=== PATIENT | male | born 1965 | race African-American/Black ===

== ENCOUNTER 2017-02-15 21:38 | Observation (INO) | payer MEDICARE, OTHER ==
--- NOTE | 2017-02-15 22:44 | ER Document Report ---
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 IN LAST 30 DAYS: No <JAS VILLASENOR - Last Filed: 02/16/17 04:44> <BEL CHAPMAN - Last Filed: 02/16/17 05:27> - General Chief Complaint: Nausea/Vomiting/Diarrhea Stated Complaint: VOMITING,FEVER Time Seen by Provider: 02/15/17 22:29 Notes: Patient is a 51 year old male with a history of HTN presents to the emergency department with family complaining of multiple symptoms including nausea, vomiting, and chest pain onset today. Patient states that he had similar symptoms in April. Patient states he had some turkey this morning and proceeded to vomit 2x and once upon arrival and states he has not eaten since. Patient states his abdomen is swollen and he feels as if there is air inside it. Patient states that he feels his chest pain is correlated with him vomiting so much. Patient also states that it hurts to breathe and short of breath. (JAS VILLASENOR) - Related Data Allergies/Adverse Reactions: No Known Allergies Allergy (Unverified 02/15/17 21:58) Past Medical History - General Information source: Patient - Social History Smoking Status: Current Every Day Smoker Smoking Education Provided: No Frequency of alcohol use: Occasional Drug Abuse: None Family History: Reviewed & Not Pertinent - Past Medical History Cardiac Medical History: Reports: Hx Hypertension <JAS VILLASENOR - Last Filed: 02/16/17 04:44> Review of Systems - Review of Systems Constitutional: No symptoms reported EENT: No symptoms reported Cardiovascular: See HPI, Chest pain Respiratory: See HPI, Hurts to breathe, Short of breath Gastrointestinal: See HPI, Abdomen distended, Nausea, Vomiting Genitourinary: No symptoms reported Male Genitourinary: No symptoms reported Musculoskeletal: No symptoms reported Skin: No symptoms reported Hematologic/Lymphatic: No symptoms reported Neurological/Psychological: No symptoms reported -: Yes All other systems reviewed and negative <JAS VILLASENOR - Last Filed: 02/16/17 04:44> Physical Exam <JAS VILLASENOR - Last Filed: 02/16/17 04:44> <BEL CHAPMAN - Last Filed: 02/16/17 05:27> - Vital signs Vitals: Temp Pulse Resp BP Pulse Ox 99.7 F 69 20 157/95 H 93 02/15/17 21:58 02/15/17 21:58 02/15/17 21:58 02/15/17 21:58 02/15/17 21:58 - Notes Notes: GENERAL: Alert, interacts well. No acute distress. Patient is deaf. HEAD: Normocephalic, atraumatic. EYES: Pupils equal, round, and reactive to light. Extraocular movements intact. ENT: Oral mucosa moist, tongue midline. NECK: Full range of motion. Supple. Trachea midline. LUNGS: Clear to auscultation bilaterally, no wheezes, rales, or rhonchi. No respiratory distress. HEART: 3/6 systolic murmur. no gallops or rubs. ABDOMEN: Soft, non-tender. Non-distended. Bowel sounds present in all 4 quadrants. EXTREMITIES: Moves all 4 extremities spontaneously. No edema, radial and dorsalis pedis pulses 2/4 bilaterally. No cyanosis. NEUROLOGICAL: Alert and oriented x3. PSYCH: Normal affect, normal mood. SKIN: Warm, dry, normal turgor. No rashes or lesions noted. (JAS VILLASENOR) Course - Laboratory Result Diagrams: 02/15/17 22:50 02/15/17 22:50 <JAS VILLASENOR - Last Filed: 02/16/17 04:44> - Laboratory Result Diagrams: 02/15/17 22:50 02/15/17 22:50 <BEL CHAPMAN - Last Filed: 02/16/17 05:27> - Re-evaluation Re-evalutation: Patient re-checked. Patient is hypoxic and on oxygen. CTA will be done to look for a pulmonary embolism. Patient states pain and breathing is better. Patient is drinking baljit feliciano without difficulties. 02/16/17 00:41 02/16/17 00:43 (JAS VILLASENOR) 02/16/17 05:25 CBC shows slight leukocytosis 11.1, coags normal, CMP shows slightly elevated BUN, negative cardiac enzymes, elevated lipase at 743.6, pain from the stomach is controlled after a single dose of pain medication and vomiting is controlled after single dose of Zofran, able to tolerate baljit feliciano without difficulty. Patient did become hypoxic while at rest to 88% on room air. Chest x-ray reveals possible pulmonary edema however proBNP is 71, he has no history of heart failure and lung exam is not consistent with pulmonary edema so a CT angiogram of the chest was ordered to look for pulmonary embolism, this showed possible pulmonary edema versus atypical pneumonia versus chronic interstitial lung disease. At present patient is still hypoxic on room air. Discussed with patient the need for admission given hypoxia, patient agrees, discussed this case with Dr. Odom the hospitalist who agrees to admit the patient to the hospital. (BEL CHAPMAN) - Vital Signs Vital signs: Temp Pulse Resp BP Pulse Ox 99.7 F 69 17 120/94 H 93 02/15/17 21:58 02/15/17 21:58 02/16/17 04:00 02/16/17 03:59 02/16/17 04:00 - Laboratory Laboratory results interpreted by me: 02/15/17 02/15/17 02/15/17 22:50 22:50 22:50 WBC 11.1 H RDW 14.8 H Seg Neuts % (Manual) 95 H Band Neutrophils % 1 L Lymphocytes % (Manual) 3 L Monocytes % (Manual) 1 L Abs Neuts (Manual) 10.7 H Abs Lymphs (Manual) 0.3 L Sodium 145.1 H BUN 24 H Glucose 115 H Direct Bilirubin 0.5 H Creatine Kinase 212 H Lipase 743.6 H - EKG Interpretation by Me Additional EKG results interpreted by me: 02/16/17 05:25 EKG does show sinus rhythm at a rate of 80, left axis deviation, normal intervals, LVH, T-wave inversions noted in V4 through V6 as well as 1 and aVL, no old EKGs available for comparison per my interpretation. (BEL CHAPMAN) Discharge <JAS VILLASENOR - Last Filed: 02/16/17 04:44> - Discharge Admitting Provider: Maura odom Unit Admitted: Telemetry <BEL CHAPMAN - Last Filed: 02/16/17 05:27> - Discharge Clinical Impression: Hypoxia Pancreatitis Qualifiers: Chronicity: acute Pancreatitis type: unspecified pancreatitis type Acute pancreatitis complication: unspecified Qualified Code(s): K85.90 - Acute pancreatitis without necrosis or infection, unspecified Condition: Fair Disposition: ADMITTED INPATIENT Scribe Attestation: 02/16/17 05:26 I personally performed the services described in the documentation, reviewed and edited the documentation which was dictated to the scribe in my presence, and it accurately records my words and actions. (BEL CHAPMAN) Scribe Documentation - Scribe Written by Scribe:: Trinity Dooley, 02/15/2017 23:35 acting as scribe for :: Bel <JAS VILLASENOR - Last Filed: 02/16/17 04:44>
[2017-02-15 23:02] LABS: HEMOGLOBIN 15.9 g/dL (13.5-17.0); HGB HCT DIFFERENCE 1.7; MEAN CORPUSCULAR HEMOGLOBIN 31.9 pg (27.0-33.4); MEAN CORPUSCULAR HGB CONC 34.5 g/dL (32.0-36.0); MEAN CORPUSCULAR VOLUME 92 fl (80-97); RED BLOOD COUNT 4.98 10^6/uL (4.35-5.55); RED CELL DISTRIBUTION WIDTH 14.8 % (11.5-14.0); WHITE BLOOD COUNT 11.1 10^3/uL (4.0-10.5)
--- NOTE | 2017-02-15 23:02 | RADIOLOGY REPORT (SQ) ---
EXAM DESCRIPTION: CHEST PA/LAT COMPLETED DATE/TIME: 02/15/2017 10:37 pm REASON FOR STUDY: chest pain COMPARISON: None. EXAM PARAMETERS: NUMBER OF VIEWS: two views TECHNIQUE: Digital Frontal and Lateral radiographic views of the chest acquired. RADIATION DOSE: NA LIMITATIONS: none FINDINGS: LUNGS AND PLEURA: Mild interstitial markings. Moderate lung volume. MEDIASTINUM AND HILAR STRUCTURES: No masses or contour abnormalities. HEART AND VASCULAR STRUCTURES: Heart normal size. No evidence for failure. BONES: No acute findings. HARDWARE: None in the chest. OTHER: No other significant finding. IMPRESSION: Mild interstitial markings which may indicate mild pulmonary edema, atypical pneumonitis , and/or chronic interstitial lung disease. TECHNICAL DOCUMENTATION: JOB ID: [id number] [employer]- All Rights Reserved
[2017-02-15 23:04] LABS: PROTHROMBIN TIME 13.1 SEC (11.4-15.4)
[2017-02-15 23:18] LABS: ALANINE AMINOTRANSFERASE 43 U/L (21-72); ALBUMIN 4.4 g/dL (3.5-5.0); ALKALINE PHOSPHATASE 94 U/L (38-126); ANION GAP 15 (5-19); ASPARTATE AMINO TRANSFERASE 22 U/L (17-59); BAND NEUTROPHILS % (MANUAL) 1 % (3-5); BASOPHILS % (MANUAL) 0 % (0-2); BILIRUBIN,DIRECT 0.5 mg/dL (0.0-0.4); BILIRUBIN,TOTAL 0.9 mg/dL (0.2-1.3); BLOOD UREA NITROGEN 24 mg/dL (7-20); CALCIUM 9.2 mg/dL (8.4-10.2); CARBON DIOXIDE 24 mmol/L (22-30); CHLORIDE 106 mmol/L (98-107); CREATINE KINASE 212 U/L (55-170); CREATININE RESULT 1.06 mg/dL (0.52-1.25); EOSINOPHILS % (MANUAL) 0 % (0-6); GLUCOSE 115 mg/dL (75-110); LYMPHOCYTES % (MANUAL) 3 % (13-45); POTASSIUM 3.8 mmol/L (3.6-5.0); SODIUM 145.1 mmol/L (137-145); TOTAL CELLS COUNTED 100; TOTAL PROTEIN 7.5 g/dL (6.3-8.2)
[2017-02-15 23:19] LABS: ANISOCYTOSIS SLIGHT; POLYCHROMASIA SLIGHT
[2017-02-15 23:30] LABS: CREATINE KINASE MB 1.98 ng/mL (<4.55)
[2017-02-15 23:32] LABS: TROPONIN I < 0.012 ng/mL
[2017-02-16] MEDS ORDERED: HYDROMORPHONE HCL INJ/PF 2 MG/ML AMPULE IV ONE (00:02)
[2017-02-16] MEDS ORDERED: ONDANSETRON HCL INJ/PF 4 MG/2 ML SDV IV ONE (00:02)
[2017-02-16] MEDS ORDERED: FUROSEMIDE INJ/PF 40 MG/4 ML SDV IV ONE (00:32)
--- NOTE | 2017-02-16 03:19 | RADIOLOGY REPORT (SQ) ---
EXAM DESCRIPTION: CTA CHEST COMPLETED DATE/TIME: 02/16/2017 3:07 am REASON FOR STUDY: hypoxia, chest pain COMPARISON: CR, 02/15/2017 TECHNIQUE: CT scan of the chest performed using helical scanning technique with dynamic intravenous contrast injection. Images reviewed with lung, soft tissue and bone windows. Reconstructed coronal and sagittal MPR images reviewed. Additional 3 dimensional post-processing performed to develop Maximal Intensity Projection images ([place] P). All images stored on PACS. All CT scanners at this facility use dose modulation, iterative reconstruction, and/or weight based d osing when appropriate to reduce radiation dose to as low as reasonably achievable (ALARA). [facility]: Dose Right [facility]: CareDose [facility]: Dose Right [facility]: Teradose 4D [facility]: [employer] CONTRAST TYPE AND DOSE: contrast/concentration: Isovue 370.00 mg/ml; Total Contrast Delivered: 100.0 ml; Total Saline Delivered: 60.0 ml Contrast bolus optimized for the pulmonary arteries. Not diagnostic for the aorta. RENAL FUNCTION: Creatinine 1.1 RADIATION DOSE: CT Rad equipment meets quality standard of care and radiation dose reduction techniq ues were employed. CTDIvol: 25.2 mGy. DLP: 752 mGy-cm. . LIMITATIONS: None. FINDINGS: LUNGS AND PLEURA: Mild interstitial markings. Scattered ground-glass airspace opacity of bilateral lower lung tate. Moderate lung volume. AORTA AND GREAT VESSELS: No aneurysm. Contrast bolus not optimized for the aorta. HEART: No pericardial effusion. No significant coronary artery calcifications. PULMONARY ARTERIES: No emboli visualized in the main pulmonary arteries or the segmental branches. HILAR AND MEDIASTINAL STRUCTURES: No identified masses or abnormal nodes. HARDWARE: None in the chest. UPPER ABDOMEN: No significant findings. Limited exam. THYROID AND OTHER SOFT TISSUES: No masses. No adenopathy. BONES: No acute or significant finding. 3D MIPS: Confirm above findings. OTHER: No other significant finding. IMPRESSION: Mild prominence of the interstitium and scattered ground-glass airspace opacity ; differ ential diagnosis includes mild pulmonary edema, atypical pneumonitis, and/or chronic interstitial power g disease. COMMENT: Quality ID # [id number]: Final reports with documentation of one or more dose reduction techniques (e.g., Automated exposure control, adjustment of the mA and/or kV according to patient size, use of iterative reconstruction technique) TECHNICAL DOCUMENTATION: JOB ID: [id number] [employer]- All Rights Reserved
[2017-02-16] MEDS ORDERED: PANTOPRAZOLE SODIUM 40 MG VIAL IV ONE (05:13)
[2017-02-16] MEDS ORDERED: ONDANSETRON HCL INJ/PF 4 MG/2 ML SDV IV PRN (05:17)
[2017-02-16] MEDS ORDERED: ACETAMINOPHEN 325 MG TABLET PO PRN (05:17)
[2017-02-16] MEDS ORDERED: ASPIRIN 325 MG TABLET PO ONE (05:26)
[2017-02-16] MEDS: HEPARIN SOD (PORCINE) 5,000 UNIT/ML 1 ML SYRINGE SUBCUT SCH ×3 (05:47→22:36)
[2017-02-16 06:31] LABS: CREATINE KINASE MB 2.49 ng/mL (<4.55)
[2017-02-16 06:47] LABS: TROPONIN I < 0.012 ng/mL
[2017-02-16] MEDS ORDERED: HYDRALAZINE HCL INJ/PF 20 MG/1 ML SDV IV PRN (07:33)
[2017-02-16] MEDS ORDERED: KETOROLAC TROMETHAMINE INJ/PF 30 MG/1 ML SDV IV PRN (07:33)
[2017-02-16] MEDS ORDERED: CALCIUM CARBONATE 500 MG TAB.CHEW PO PRN (07:33)
--- NOTE | 2017-02-16 07:33 | PDOC H&P ---
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 Patient presents after several days of worsening abdominal pain and distention associated with nausea and vomiting. Patient denies chest pain he has had some brief shortness of breath. Patient' s new medications include nifedipine. In the emergency room he was found to have acute pancreatitis and shortness of breath with pneumonitis. He is referred to the hospitalist for admission. Past Medical History Cardiac Medical History: Reports: Hypertension Social History Information Source: Patient Smoking Status: Current Every Day Smoker Frequency of Alcohol Use: None Hx Recreational Drug Use: No - Advance Directive Resuscitation Status: Full Code Family History Family History: Hypertension Parental Family History Reviewed: Yes Children Family History Reviewed: Yes Sibling(s) Family History Reviewed.: Yes Medication/Allergy Allergies/Adverse Reactions: No Known Allergies Allergy (Unverified 02/15/17 21:58) Review of Systems Gastrointestinal: PRESENT: bloating, constipation, diarrhea, nausea Genitourinary: ABSENT: dysuria, hematuria Musculoskeletal: ABSENT: joint swelling Integumentary: ABSENT: rash, wounds Neurological: ABSENT: abnormal gait, abnormal speech, confusion, dizziness, focal weakness, syncope Psychiatric: ABSENT: anxiety, depression, homidical ideation, suicidal ideation Endocrine: ABSENT: cold intolerance, heat intolerance, polydipsia, polyuria Hematologic/Lymphatic: ABSENT: easy bleeding, easy bruising Physical Exam Vital Signs: Temp Pulse Resp BP Pulse Ox 99.7 F 69 16 120/71 93 02/15/17 21:58 02/15/17 21:58 02/16/17 06:00 02/16/17 05:01 02/16/17 06:00 General appearance: PRESENT: no acute distress, well-developed, well-nourished Head exam: PRESENT: atraumatic, normocephalic Eye exam: PRESENT: conjunctiva pink, EOMI, PERRLA. ABSENT: scleral icterus Ear exam: PRESENT: normal external ear exam Mouth exam: PRESENT: moist, tongue midline Neck exam: ABSENT: carotid bruit, JVD, lymphadenopathy, thyromegaly Respiratory exam: PRESENT: clear to auscultation jacoby. ABSENT: rales, rhonchi, wheezes Cardiovascular exam: PRESENT: RRR. ABSENT: diastolic murmur, rubs, systolic murmur Pulses: PRESENT: normal dorsalis pedis pul Vascular exam: PRESENT: normal capillary refill GI/Abdominal exam: PRESENT: distended, hypoactive bowel sounds, normal bowel sounds, soft, tenderness. ABSENT: firm, guarding, mass, organolmegaly, rebound Rectal exam: PRESENT: deferred Extremities exam: PRESENT: full ROM. ABSENT: calf tenderness, clubbing, pedal edema Neurological exam: PRESENT: alert, awake, oriented to person, oriented to place , oriented to time, oriented to situation, CN II-XII grossly intact. ABSENT: motor sensory deficit Psychiatric exam: PRESENT: appropriate affect, normal mood. ABSENT: homicidal ideation, suicidal ideation Skin exam: PRESENT: dry, intact, warm. ABSENT: cyanosis, rash Results Laboratory Results: 02/16/17 02/16/17 05:50 05:50 Creatine Kinase 233 H CK-MB (CK-2) 2.49 Troponin I < 0.012 Impressions: Chest X-Ray 02/15/17 00:00 IMPRESSION: Mild interstitial markings which may indicate mild pulmonary edema , atypical pneumonitis, and/or chronic interstitial lung disease. Chest/Abdomen CTA 02/16/17 00:32 IMPRESSION: Mild prominence of the interstitium and scattered ground-glass airspace opacity ; differential diagnosis includes mild pulmonary edema, atypical pneumonitis, and/or chronic interstitial lung disease. Assessment & Plan - Diagnosis (1) Ileus Is this a current diagnosis for this admission?: Yes Plan: Recent onset without significant leukocytosis most likely secondary to nifedipine. Discontinue nifedipine substitute PINA inhibitor or hydralazine. (2) Pneumonitis Is this a current diagnosis for this admission?: Yes Plan: Secondary to ileus with vomiting, symptomatic management (3) Irritable bowel syndrome Is this a current diagnosis for this admission?: Yes Plan: Chronic by history intermittent constipation and diarrhea trial Bentyl (4) Pancreatitis Qualifiers: Chronicity: acute Pancreatitis type: unspecified pancreatitis type Acute pancreatitis complication: unspecified Qualified Code(s): K85.90 - Acute pancreatitis without necrosis or infection, unspecified Is this a current diagnosis for this admission?: Yes Plan: Mild by history and chemical findings likely secondary to ileus with vomiting only, bowel rest and symptomatic management. - Time Time Spent: 30 to 50 Minutes
[2017-02-16] MEDS: IPRATROPIUM/ALBUTEROL 0.5-2.5 MG/3 ML AMPUL NEB SCH ×2 (08:59→16:25)
[2017-02-16] MEDS ORDERED: PSYLLIUM SEED-SF 5.85 GM PACKET PO SCH ×2 (10:00)
--- NOTE | 2017-02-16 10:24 | PDOC PROGRESS REPORT ---
Subjective Progress Note for:: 02/16/17 Subjective:: Denies any further abdominal pain. Physical Exam Vital Signs: Temp Pulse Resp BP Pulse Ox 98.7 F 79 18 128/77 H 90 L 02/16/17 07:50 02/16/17 09:35 02/16/17 07:50 02/16/17 08:00 02/16/17 07:50 Intake & Output 02/15/17 02/16/17 02/17/17 06:59 06:59 06:59 Weight 95.3 kg General appearance: PRESENT: no acute distress Eye exam: PRESENT: conjunctiva pink. ABSENT: scleral icterus Mouth exam: PRESENT: moist, tongue midline Neck exam: ABSENT: JVD Respiratory exam: PRESENT: clear to auscultation jacoby. ABSENT: rales, rhonchi, wheezes Cardiovascular exam: PRESENT: RRR. ABSENT: diastolic murmur, rubs, systolic murmur GI/Abdominal exam: PRESENT: hypoactive bowel sounds, soft. ABSENT: distended, guarding, mass, organolmegaly, rebound, tenderness Extremities exam: ABSENT: calf tenderness, clubbing, pedal edema Neurological exam: PRESENT: alert, awake, oriented to person, oriented to place , oriented to time, oriented to situation. ABSENT: CN II-XII grossly intact - Patient is deaf, motor sensory deficit Psychiatric exam: PRESENT: appropriate affect Skin exam: PRESENT: dry, intact, warm. ABSENT: cyanosis, rash Results Laboratory Results: 02/16/17 02/16/17 05:50 05:50 Creatine Kinase 233 H CK-MB (CK-2) 2.49 Troponin I < 0.012 Impressions: Chest X-Ray 02/15/17 00:00 IMPRESSION: Mild interstitial markings which may indicate mild pulmonary edema , atypical pneumonitis, and/or chronic interstitial lung disease. Chest/Abdomen CTA 02/16/17 00:32 IMPRESSION: Mild prominence of the interstitium and scattered ground-glass airspace opacity ; differential diagnosis includes mild pulmonary edema, atypical pneumonitis, and/or chronic interstitial lung disease. Assessment & Plan - Diagnosis (1) Hypoxia Is this a current diagnosis for this admission?: Yes Plan: Most likely secondary to aspiration. This is improving. (2) Pneumonitis Is this a current diagnosis for this admission?: Yes Plan: The patient may have had aspiration. He is clinically improving. No evidence for active infection. (3) Ileus Is this a current diagnosis for this admission?: Yes Plan: Improving. The patient was just started on nifedipine which could be the cause for his ileus. (4) Pancreatitis Qualifiers: Chronicity: acute Pancreatitis type: unspecified pancreatitis type Acute pancreatitis complication: unspecified Qualified Code(s): K85.90 - Acute pancreatitis without necrosis or infection, unspecified Is this a current diagnosis for this admission?: Yes Plan: The patient's abdominal pain has improved. Will continue n.p.o. today and start feeding tomorrow and if tolerated send home tomorrow. (5) Irritable bowel syndrome Is this a current diagnosis for this admission?: Yes (6) Hypertension Is this a current diagnosis for this admission?: Yes Plan: The patient's nifedipine has been stopped because the possibility of it contributing to the ileus. - Time Time Spent with patient: 25-34 minutes
[2017-02-16] MEDS: NORMAL SALINE 1000 ML 1,000 ML IV PRN (11:15)
[2017-02-16 12:41] LABS: CREATINE KINASE MB 2.64 ng/mL (<4.55)
[2017-02-16 12:44] LABS: TROPONIN I < 0.012 ng/mL
--- NOTE | 2017-02-16 14:41 | EKG REPORT ---
SEVERITY:- ABNORMAL ECG - SINUS RHYTHM LEFT ATRIAL ABNORMALITY PROBABLE LVH WITH SECONDARY REPOL ABNRM ABNORMAL T, PROBABLE ISCHEMIA, ANT-LAT LEADS : Confirmed by: Donna Maldonado MD 16-Feb-2017 14:41:43
[2017-02-16] MEDS: DICYCLOMINE HCL 20 MG TABLET PO SCH ×3 (15:35→22:36)
[2017-02-16] MEDS: DOCUSATE SODIUM 100 MG CAPSULE PO SCH ×2 (15:36→18:51)
[2017-02-16 18:18] LABS: CREATINE KINASE MB 2.94 ng/mL (<4.55)
[2017-02-16 18:23] LABS: TROPONIN I < 0.012 ng/mL
[2017-02-17] MEDS: NORMAL SALINE 1000 ML 1,000 ML IV PRN (00:11)
[2017-02-17] MEDS: IPRATROPIUM/ALBUTEROL 0.5-2.5 MG/3 ML AMPUL NEB SCH ×2 (00:32→08:40)
[2017-02-17 05:25] LABS: ABSOLUTE LYMPHOCYTES (AUTO) 1.6 10^3/uL (0.5-4.7); ABSOLUTE MONOCYTES (AUTO) 0.6 10^3/uL (0.1-1.4); ABSOLUTE NEUT (AUTO) 3.5 10^3/uL (1.7-8.2); BASOPHILS % (AUTO) 0.8 % (0-2); EOSINOPHILS % (AUTO) 0.8 % (0-6); HGB HCT DIFFERENCE 1.6; LYMPHOCYTES % (AUTO) 27.3 % (13-45); MEAN CORPUSCULAR HEMOGLOBIN 32.1 pg (27.0-33.4); MEAN CORPUSCULAR HGB CONC 34.6 g/dL (32.0-36.0); MEAN CORPUSCULAR VOLUME 93 fl (80-97); RED BLOOD COUNT 4.09 10^6/uL (4.35-5.55); RED CELL DISTRIBUTION WIDTH 14.9 % (11.5-14.0); SEGMENTED NEUTROPHILS % (AUTO) 61.1 % (42-78); WHITE BLOOD COUNT 5.8 10^3/uL (4.0-10.5)
[2017-02-17 05:27] LABS: HEMOGLOBIN 13.2 g/dL (13.5-17.0)
[2017-02-17 05:45] LABS: ANION GAP 11 (5-19); BLOOD UREA NITROGEN 20 mg/dL (7-20); CARBON DIOXIDE 23 mmol/L (22-30); CHLORIDE 111 mmol/L (98-107); CREATININE RESULT 1.05 mg/dL (0.52-1.25); GLUCOSE 74 mg/dL (75-110); POTASSIUM 3.6 mmol/L (3.6-5.0); SODIUM 144.6 mmol/L (137-145)
[2017-02-17] MEDS: HEPARIN SOD (PORCINE) 5,000 UNIT/ML 1 ML SYRINGE SUBCUT SCH (05:55)
[2017-02-17 09:19] VITALS: BP 128/77
--- NOTE | 2017-02-17 10:54 | PDOC DISCHARGE SUMMARY ---
General - Admit/Disc Date/PCP Admission Date/Primary Care Provider: 02/16/17 05:30 NO LOCALMD Discharge Date: 02/17/17 - Discharge Diagnosis (1) Hypoxia Is this a current diagnosis for this admission?: Yes Summary: Secondary to aspiration pneumonitis. This is resolving. (2) Pneumonitis Is this a current diagnosis for this admission?: Yes Summary: Improving. No antibiotics were used. (3) Ileus Is this a current diagnosis for this admission?: Yes Summary: Possibly secondary to his nifedipine was recently started. He has been changed over to Norvasc. (4) Pancreatitis Is this a current diagnosis for this admission?: Yes Summary: Resolved (5) Irritable bowel syndrome Is this a current diagnosis for this admission?: Yes (6) Hypertension Is this a current diagnosis for this admission?: Yes Summary: His nifedipine was stopped and he was switched over to Norvasc. - Additional Information Resuscitation Status: Full Code Discharge Diet: Regular Discharge Activity: Activity As Tolerated Home Medications: Atorvastatin Calcium [Lipitor 20 mg Tablet] 20 mg PO DAILY 02/16/17 Hydrochlorothiazide [Hydrodiuril 25 mg Tablet] 25 mg PO Q12 02/16/17 Lisinopril [Prinivil 40 mg Tablet] 40 mg PO DAILY 02/16/17 Omeprazole 20 mg PO Q6AM 02/16/17 Amlodipine Besylate [Norvasc 2.5 mg Tablet] 2.5 mg PO DAILY #30 tablet 02/17/17 History of Present Illness History of Present Illness: JON SHAH is a 51 year old male with a history of hypertension and hyperlipidemia as well as deafness who presents with several day history of abdominal pain and distention with nausea and vomiting. The patient had recently been started on nifedipine. Patient admission was found to have some pancreatitis and shortness of breath consistent with pneumonitis Hospital Course Hospital Course: 51-year-old male with history of hypertension who presented with an ileus as well as pancreatitis and probable aspiration pneumonitis. He was admitted and made n.p.o. Given IV fluids. His ileus resolved spontaneously. The patient's pink otitis also resolved. He did have some possible aspiration and this has improved. He was initially hypoxic but that has resolved. Because the ileus occurred after starting nifedipine the possibility of this being the causative agent was considered. His nifedipine was stopped and he was changed over to Norvasc 2.5 mg daily. Physical Exam Vital Signs: Temp Pulse Resp BP Pulse Ox 98.7 F 65 16 128/77 H 97 02/17/17 09:15 02/17/17 09:15 02/17/17 09:15 02/17/17 09:15 02/17/17 09:15 Intake & Output 02/16/17 02/17/17 02/18/17 06:59 06:59 06:59 Intake Total 3536 Balance 3536 Weight 96.5 kg General appearance: PRESENT: no acute distress Eye exam: PRESENT: conjunctiva pink. ABSENT: scleral icterus Mouth exam: PRESENT: moist, tongue midline Neck exam: ABSENT: JVD Respiratory exam: PRESENT: clear to auscultation jacoby. ABSENT: rales, rhonchi, wheezes Cardiovascular exam: PRESENT: RRR. ABSENT: diastolic murmur, rubs, systolic murmur GI/Abdominal exam: PRESENT: normal bowel sounds, soft. ABSENT: distended, guarding, mass, organolmegaly, rebound, tenderness Extremities exam: ABSENT: calf tenderness, clubbing, pedal edema Neurological exam: PRESENT: alert, awake, oriented to person, oriented to place , oriented to time, oriented to situation. ABSENT: CN II-XII grossly intact - He is deaf, motor sensory deficit Psychiatric exam: PRESENT: appropriate affect Skin exam: PRESENT: dry, intact, warm. ABSENT: cyanosis, rash Results Laboratory Results: 02/17/17 04:39 02/17/17 04:39 02/17/17 02/17/17 04:39 04:39 WBC 5.8 RBC 4.09 L Hgb 13.2 L D Hct 38.0 MCV 93 MCH 32.1 MCHC 34.6 RDW 14.9 H Plt Count 195 Seg Neutrophils % 61.1 Lymphocytes % 27.3 Monocytes % 10.0 Eosinophils % 0.8 Basophils % 0.8 Absolute Neutrophils 3.5 Absolute Lymphocytes 1.6 Absolute Monocytes 0.6 Absolute Eosinophils 0.0 Absolute Basophils 0.0 Sodium 144.6 Potassium 3.6 Chloride 111 H Carbon Dioxide 23 Anion Gap 11 BUN 20 Creatinine 1.05 Est GFR ( Amer) > 60 Est GFR (Non-Af Amer) > 60 Glucose 74 L Calcium 8.0 L 02/16/17 02/16/17 02/16/17 05:50 05:50 11:42 Creatine Kinase 233 H 230 H CK-MB (CK-2) 2.49 Troponin I < 0.012 02/16/17 02/16/17 02/16/17 11:42 17:30 17:30 Creatine Kinase 273 H CK-MB (CK-2) 2.64 2.94 Troponin I < 0.012 < 0.012 Impressions: Chest X-Ray 02/15/17 00:00 IMPRESSION: Mild interstitial markings which may indicate mild pulmonary edema , atypical pneumonitis, and/or chronic interstitial lung disease. Chest/Abdomen CTA 02/16/17 00:32 IMPRESSION: Mild prominence of the interstitium and scattered ground-glass airspace opacity ; differential diagnosis includes mild pulmonary edema, atypical pneumonitis, and/or chronic interstitial lung disease. Qualifiers PATEINT BEING DISCHARGED WITH ANY OF THE FOLLOWING DIAGNOSIS?: No Plan Discharge Plan: Patient is discharged to home. Follow-up with primary care in 2 weeks. Time Spent: Less than 30 Minutes
== END 2017-02-17 10:15 | disposition home or self-care (01) ==
LOC: ER 21:38 → EH 02-16 05:30 → INTOOBSV 02-16 05:30 → 3S 02-16 07:47
PROVIDERS: ADMIT Internal Medicine; ATTEND Internal Medicine
PROC: 3E0F7GC Introduction of Other Therapeutic Substance into Respiratory Tract, Via Natural or Artificial Opening (ICD-10-PCS; principal; 2017-02-15)
DX: R09.02 Hypoxemia (principal); J69.0 Pneumonitis due to inhalation of food and vomit; K56.7 Ileus, unspecified; K85.90 Acute pancreatitis without necrosis or infection, unspecified; K58.2 Mixed irritable bowel syndrome; I10 Essential (primary) hypertension; E78.5 Hyperlipidemia, unspecified; H91.90 Unspecified hearing loss, unspecified ear; H66.90 Otitis media, unspecified, unspecified ear; F17.200 Nicotine dependence, unspecified, uncomplicated; Z79.899 Other long term (current) drug therapy; Z82.49 Family history of ischemic heart disease and other diseases of the circulatory system
CPT/HCPCS: 93005; 99285; 96374; 96375; 36415 ×3; 82553 ×2; 82550 ×2; 83690; 85025 ×2; 85610; 80048; 80053; 84484 ×2; 83880; 71020; 71275; 93010; 94640 ×3; G0378 ×3; A9270 ×4; J1644 ×2; J1940; J1170; C9113; J2405; J7030 ×2; J3490; J7620; S0164